=== PATIENT | male | born 1985 ===

== ENCOUNTER 2025-03-02 15:03 | Outpatient (CLI) | payer SELFPAY ==
--- NOTE | ~2025-03-02 | MR_ITS ---
MRI of the right wrist Technique: Coronal T1 weighted and proton density fat sat images, and axial and sagittal proton-densi ty and proton-density fat-sat images were acquired. Clinical History: Pain Findings: Scapholunate ligament is intact, and there is no widening of the scapholunate interval. Fransico otriquetral ligament is intact. There is severe degenerative signal and possible partial tearing of t he foveal and ulnar styloid insertions of the ulnar aspect of the TFCC. Central articular disc of the TFCC is intact. Bone marrow signals are unremarkable. Joint spaces are intact. No degenerative or erosive arthropathy evident. No joint effusion. Flexor tendons in the carpal tunnel are intact. Extensor tendons are intact. No evidence for tenosyno vitis. No soft tissue mass or fluid collection evident. 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 Reviewed, dictated and finalized at location . IMPRESSION: Severe degenerative signal and suspected partial tearing of the foveal and ulna r styloid insertions of the ulnar aspect of the TFCC.
== END 2025-03-02 15:04 | disposition home or self-care (01) ==
PROVIDERS: PCP Student in an Organized Health Care Education/Training Program; Visit Provider Student in an Organized Health Care Education/Training Program
DX: M19.031 Primary osteoarthritis, right wrist (principal)
CPT/HCPCS: 73221